=== PATIENT | female | born 1940 | race Caucasian/White ===

== ENCOUNTER 2019-02-13 19:47 | Inpatient (IN) | payer MEDICARE ==
--- NOTE | 2019-02-14 09:42 | PDOC.PN ---
- Subjective Encounter Start Date: 02/14/19 Encounter Start Time: 09:40 Still has some dysarthria. Denies swallowing problems. - Objective Resuscitation Status - Order Detail: 02/14/19 09:36 Resuscitation Status Routine Resuscitation Status: DNAR: NO Resuscitation Discussed with: Patient Phys Exam - Physical Examination Constitutional: NAD Respiratory: no wheezing, no rales, no rhonchi Cardiovascular: RRR, no significant murmur, no rub Gastrointestinal: soft, non-tender, no distention Musculoskeletal: no edema Dysarthria Dx/Plan (1) Dysarthria Code(s): R47.1 - DYSARTHRIA AND ANARTHRIA Status: Acute (2) Abnormal CT of brain Code(s): R90.89 - OTH ABNORMAL FINDINGS ON DIAGNOSTIC IMAGING OF CNSL Status: Acute (3) PVD (peripheral vascular disease) Code(s): I73.9 - PERIPHERAL VASCULAR DISEASE, UNSPECIFIED Status: Acute (4) HLD (hyperlipidemia) Code(s): E78.5 - HYPERLIPIDEMIA, UNSPECIFIED Status: Acute - Plan * Continue Plavix and ASA. * Neuro consult * MRI pending to help differentiate between ischemic event and mass lesion. 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
[2019-02-14 10:22] VITALS: BMI 23.0
[2019-02-14 11:28] VITALS: TEMP 98.2
[2019-02-14 12:33] VITALS: BP 193/89
--- NOTE | 2019-02-14 12:39 | MRI ---
MRI BRAIN WITH AND WITHOUT CONTRAST: DATE: 02/14/2019 HISTORY: 78-year-old female with dysarthria episode. CVA versus TIA. Lesion in cerebellum found on noncontrast brain CT. COMPARISON: Noncontrast MRI of 03/03/2016. TECHNIQUE: Multiplanar, multisequence MRI of the brain performed pre- and post-IV injection of gadolinium based contrast agent. FINDINGS: There is a new finding of a large, approximately 4 x 3.5 x 2.6 cm intra-axial mass in the right cereb ellar hemisphere. It has mixed intermediate and hyperintense T2 signal, rim enhancement and central heterogeneous enhancement, abuts the undersurface of the right tentorium cerebelli, and is surrounded by a mild degree of vasogenic edema. It exerts mass effect, distorting and narrowing the fourth ventricle. However, it is not causing obstructive hydrocephalus. The third and lateral ventricles are normal in size and configuration. In the contralateral left cerebellar hemisphere posteriorly, there is a 1.2 cm rim-enhancing intra-ax ial mass. There are a few other enhancing metastatic masses in the supratentorial brain. One is in the right pa ramedian upper frontal lobe, approximately 1 cm. Another is located many centimeters more posteriorly in the right parasagittal upper cerebrum in the far medial aspect of the precentral gyrus , measuring approximately 0.8 cm. Another is in the left parieto-occipital junction measuring 1.7 cm in longest dimension. In the left frontal centrum semiovale there is a tiny 0.3 cm enhancing nodul e representing another metastasis. There are moderate to severe chronic ischemic white matter changes throughout the periventricular and deep cerebral white matter, some extending into the subcortical white matter at the convexities. Because of this, it is difficult to distinguish chronic ischemic white matter changes from small amou nts of vasogenic edema surrounding the metastatic lesions. There is no midline shift. No recent or remote intra-axial hemorrhage. No restricted diffusion to ind icate acute infarction. 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 There is a total of at least 6 of them. 2 are in the posterior fossa, and 4 are in the supratentorial brain. 2) the largest is a 4 cm mass in the right cerebellar hemisphere. 3) the smallest is a tiny 0.3 cm lesion in the left frontal deep cerebral white matter. 4) somewhat severe chronic ischemic white matter changes.
[2019-02-14] MEDS ORDERED: Dexamethasone 10 MG in Sodium Chloride 0.9% 50 ML IVPB SCH (13:15)
--- NOTE | 2019-02-14 13:37 | ULT ---
BILATERAL CAROTID DUPLEX ULTRASOUND INCLUDING COLOR AND SPECTRAL DOPPLER IMAGING: HISTORY: CVA. TIA. COMPARISON: 03/03/2016 FINDINGS: Extensive intimal plaque and thickening involving the distal CCAs and proximal ICAs bilaterally. PSV RIGHT ICA: 168 cm per second. EDV: 21 cm per second ICA/CCA RATIO: 2.2 PSV LEFT ICA: 126 cm per second EDV: 15 cm per second ICA/CCA RATIO: 1.3 Increased velocity in the right ECA. Vertebral flow is antegrade. IMPRESSION: 1. There is 50% to 69% stenosis of the right internal carotid artery. 2. Mild to moderate stenosis of the proximal left internal carotid artery, in the 50% to 69% range. 3. Atherosclerotic carotid vascular disease. POS: BERT
[2019-02-14] MEDS ORDERED: Mometasone 200 MCG HFA INHALER INH SCH (18:30)
[2019-02-14] MEDS ORDERED: Atorvastatin Calcium 40 MG TAB PO SCH (21:00)
--- NOTE | 2019-02-14 21:44 | HP ---
PRIMARY CARE PHYSICIAN: None reported. CODE STATUS: Full code. TIME OF EVALUATION: The patient was seen on 02/13/2019 at 10:35 p.m. CHIEF COMPLAINT FOR THIS PATIENT: Speech. HISTORY OF PRESENT ILLNESS: This is an 78-year-old female patient with past medical history of hypertension, hyperlipidemia, who came to the hospital after having an episode of slurred speech. The symptoms have been present since Monday, has been gradually getting worse with no clear triggers, no alleviating factors. The symptoms have become severe since the patient is almost unable to properly speak. A CT was done and the patient was found to have possible mass to the right cerebellum area versus stroke and for that reason, she has been admitted. REVIEW OF SYSTEMS: CONSTITUTIONAL: No fever, chills, or generalized weakness. RESPIRATORY: No cough, sputum production, or shortness of breath. CARDIOVASCULAR: No chest pain or palpitation. GASTROINTESTINAL: No nausea. No vomiting, diarrhea, or abdominal pain. 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 GENITOURINARY: No burning on urination. EXTREMITIES: No leg swelling. All other systems were reviewed and negative except for the findings mentioned above. PAST MEDICAL HISTORY: The patient was mentioned in the HPI. PAST SURGICAL HISTORY: The patient has a history of appendectomy, hysterectomy, back surgery. PSYCHIATRIC HISTORY: No previous psych history. SOCIAL HISTORY: The patient uses tobacco, smokes on a daily basis. The patient smokes one pack per day. ALLERGIES: NO KNOWN DRUG ALLERGIES REPORTED. MEDICATIONS: 1. Plavix. 2. Aspirin. 3. Atorvastatin. 4. Lisinopril. 5. Nifedipine. 6. Metoprolol. 7. Cetirizine. 8. Fluticasone. 9. Pantoprazole. 10. Tylenol. PHYSICAL EXAMINATION: VITAL SIGNS: On presentation, blood pressure 172/79 with heart rate 75, respiratory rate was 16, temperature 98.3, pain was 0/10, oxygen saturation was 96% on room air. GENERAL APPEARANCE: The patient is alert, oriented, not in acute distress. HEENT: Eyes, normal conjunctivae. Moist oral mucosa. Anicteric. No JVD. RESPIRATORY: Bilateral air entry. No rales or wheezes. Symmetric expansion. CARDIOVASCULAR: Normal rate. Regular rhythm. No murmurs. No gallop. No edema. ABDOMEN: Soft. Normal bowel sounds. MUSCULOSKELETAL: Baseline range of motion and strength. SKIN: Warm, intact. No pallor. No rash. No redness. Capillary refill seems to be intact. NEUROLOGIC: The patient has aphasia, unsteady gait. PSYCHIATRIC: The patient is in good mood. No anxiety. Optimal judgment. DIAGNOSTIC DATA: Head CT, the patient has chronic ischemic white matter changes, right cerebellar findings that could be related to old or new infarct or possible mass. Questionable slight mass effect on the 4th ventricle associated with this. LABORATORY DATA: Reviewed. The patient has white count 9.7, hemoglobin 12.6, MCV 83.8, platelet count 321. Coagulation 12.5, INR 0.9, PTT 25.2. Chemistry; sodium 142, potassium 4.0, chloride 105, carbon dioxide 21, anion gap 20, BUN 16, creatinine 1.18, GFR 44, glucose 119, calcium 10.0, total bilirubin 0.4. LFTs were negative. Troponin was negative. Serum total protein 8.4, globulin 3.8. ASSESSMENT AND PLAN: The patient will be placed in the hospital with following medical problems. 1. New aphasia with unsteady gait could be secondary to findings on the CT due to possible stroke/mass. We will do a stroke protocol. We will do MRI. We will treat accordingly depending on initial workup results. 2. Hypertensive urgency. The patient's blood pressure is 172/79 on presentation. Reconcile home medications. We will adjust treatment as needed. 3. Hyperlipidemia. Low-cholesterol diet is advised. Reconcile home medications. 4. Deep venous thrombosis prophylaxis. Job ID: [id number]
[2019-02-15] MEDS ORDERED: Loratadine 10 MG TAB PO SCH (09:00)
[2019-02-15] MEDS ORDERED: Aspirin 81 mg Enteric Coated Tablet PO SCH (09:00)
[2019-02-15] MEDS ORDERED: NIFEdipine XL 90 MG TAB PO SCH (09:00)
[2019-02-15] MEDS ORDERED: Clopidogrel Bisulfate 75 MG TAB PO SCH (09:00)
[2019-02-15] MEDS ORDERED: NIFEDIPINE 90 MG PO SCH (09:00)
[2019-02-15] MEDS ORDERED: Cetirizine HCl 10 MG TAB PO SCH (09:00)
[2019-02-15] MEDS ORDERED: Lisinopril 20 MG TAB PO SCH (09:00)
[2019-02-15] MEDS ORDERED: Non-Formulary Item 1 EACH (Fluticasone Propionate [Flovent Diskus] 50 MCG) IH SCH (09:00)
== END 2019-02-14 15:45 | disposition home or self-care (01) | DRG 93 ==
LOC: ERS 19:47 → 2SE 22:51
PROVIDERS: ADMIT Hospitalist; ATTEND Hospitalist
DX: R47.1 Dysarthria and anarthria (principal); I10 Essential (primary) hypertension; R47.01 Aphasia; Z66 Do not resuscitate; E78.5 Hyperlipidemia, unspecified; R26.81 Unsteadiness on feet; I16.0 Hypertensive urgency; R90.89 Other abnormal findings on diagnostic imaging of central nervous system; I73.9 Peripheral vascular disease, unspecified; F17.210 Nicotine dependence, cigarettes, uncomplicated; Z90.49 Acquired absence of other specified parts of digestive tract; Z90.710 Acquired absence of both cervix and uterus
CPT/HCPCS: 70553; 93306; 93880; 99285; J1100; J7050